=== PATIENT | male | born 1965 | race Caucasian/White ===

== ENCOUNTER 2020-03-19 16:40 | Inpatient (IN) | payer OTHER, SELFPAY ==
[2020-03-19] VITALS (7 sets, daily range): BP systolic 140–172; BP diastolic 68–94; PULSE 72–89; RESP 16–20; TEMP 36.2–37.4; O2SAT 93–98; BMI 40.3; BMI 39.2
--- NOTE | 2020-03-19 17:09 | ED.DCSUM_ITS ---
History of Present Illness Chief Complaint: Shortness of Breath Narrative: This patient is a 54-year-old male who presents with Covid symptoms. He initially began about 13 days ago with a headache. He then developed sinusitis- like symptoms with sinus pressure congestion and postnasal drainage. He has had an intermittent cough. He currently complains of mild shortness of breath. He did have some mild diarrhea at one point that says since resolved. He has had no fevers. He complains of mild chest discomfort. No nausea or vomiting. He has no known history of any underlying lung disease such as asthma or COPD. His did test positive for Covid. Today they checked his pulse ox at home and it was as low as 82 to 83% so he came in for further evaluation and treatment. His shortness of breath is worse with exertion. Past Medical History - Allergies and Home Meds Allergies/Adverse Reactions: Allergies latex Adverse Reaction (Verified 03/19/20 16:42) REDDNESS Primary Care Physician: [facility] [Primary Care Provider] - Past Medical History: - - Hypertension Surgical History: noncontributory Smoking Status: Never smoker - Family History Maternal Family History: Reports: Hypertension Paternal Family History: Reports: Hypertension, - - obesity Review of Systems All systems negative except as indicated General: Denies: Fever Eyes: Denies: Visual changes - bilaterally ENT: Reports: Rhinorrhea, - - And is pressure/congestion. Denies: Bilateral ear pain Cardiovascular: Reports: Chest pain Respiratory: Reports: Dyspnea, Cough, Sputum Gastrointestinal: Reports: Diarrhea. Denies: Nausea, Vomiting Musculoskeletal: Reports: Myalgias Skin: Denies: Rash Neurological: Reports: Headache Hematologic: Denies: Easy bruising Allergy: Denies: Uticaria Physical Exam Vital Signs/Narrative: Vital Signs Temp Pulse Resp BP Pulse Ox 03/19/20 16:40 97.5 F L 85 20 H 146/73 H 95 Inital Vital Signs reviewed: Yes General: Well nourished, Obese Head: Normocephalic Eyes: EOMI ENT: Moist mucous membranes Neck: Supple Cardiovascular: Regular rate, Regular rhythm Respiratory: - - Tachypnea, patient appears to be dyspneic with changes in position even just moving in the bed he does have bilateral rales most pronounced at the right lower lung tony I do not appreciate wheezing he does have good air exchange no retractions able to speak full sentences Abdomen: Soft Extremities: Nontender, No edema Skin: Normal color Neurological: Alert Psychological: Normal affect Diagnostic/Tx/Re-eval Impressions Chest X-Ray 03/19/20 17:20 IMPRESSION: Probably early right lung pneumonia. Electronically Signed: Tom Magallanes, at 17:53 EST Tel , Service support , Chest CTA 03/19/20 18:33 IMPRESSION: 1. No pulmonary embolism, mildly technically limited exam. 2. Recommend ultrasonography of the lower extremities to increase accuracy of assessment and risk stratification for patient at risk for venous thrombi embolic disease. 3. Bilateral mild to moderate viral pneumonia. Electronically Signed: Tom Mendietacris, at 19:34 EST Tel , Service support , 03/19/20 17:20 Chest 1 View (Portable) [RAD] Stat 03/19/20 18:33 CTA Chest W/WO Contrast [CT] Stat 03/19/20 17:20 Mucosa - Nose SARS-CoV-2 Antigen (Rapid) - Final SARS-CoV-2 (COVID 19) Laboratory Results 03/19/20 03/19/20 03/19/20 17:30 17:30 17:30 WBC 9.2 RBC 4.79 Hgb 14.9 Hct 42.4 MCV 88.5 MCH 31.1 MCHC 35.1 RDW Std Deviation 38.8 RDW Coeff of Filemon 11.9 Plt Count 149 L MPV 9.7 Immature Gran % (Auto) 0.700 Neut % (Auto) 86.3 H Lymph % (Auto) 7.6 L [place] % (Auto) 5.2 Eos % (Auto) 0.0 Baso % (Auto) 0.2 Absolute Neuts (auto) 8.0 H Absolute Lymphs (auto) 0.70 L Nucleated RBC % 0 D-Dimer Quant (PE/DVT) 1.97 H* Sodium 139 Potassium 3.8 Chloride 108 H Carbon Dioxide 26.0 Anion Gap 5 BUN 17 Creatinine 1.27 Estim Creat Clear Calc 68.04 Est GFR (MDRD) Af Amer 77 Est GFR (MDRD) Non-Af 63 BUN/Creatinine Ratio 13.4 Glucose 115 H Calcium 8.5 Total Bilirubin 0.90 AST 30 ALT 46 Alkaline Phosphatase 63 Troponin I < 0.015 Total Protein 7.9 Albumin 3.5 Globulin 4.4 H Albumin/Globulin Ratio 0.8 L - Medical Decision Making EKG shows normal sinus rhythm with nonspecific T wave abnormalities at a rate of 83. One-view portable chest x-ray was obtained. On my interpretation this is concerning for right-sided infiltrate. X-ray read by radiology who agrees. Laboratory studies were obtained as well. D-dimer returned elevated. Due to the known coagulopathy of COVID-19 there was concern for pulmonary embolism. CTA of the chest shows no evidence of pulmonary embolism. Covid antigen was positive. On reevaluation patient has desaturated to 89% was placed on oxygen via nasal cannula. Patient was given IV Decadron as well as IV Levaquin due to concern for potential superimposed bacterial pneumonia. Patient will be discussed with the hospitalist and admitted for further evaluation and management. ED Disposition - Plan for ED Patient: Disposition: Acute Care Hospital [facility] Diagnosis: Pneumonia due to COVID-19 virus, Hypoxia [facility] [[facility] -
--- NOTE | 2020-03-19 17:20 | RAD_ITS ---
STUDY: X-RAY CHEST REASON FOR EXAM: Male, 54 years old. DYSPNEA FOR PAST HOUR, THINKS HE''S HAD COVID FOR APPROX 13 DAYS, IS POSITIVE. TECHNIQUE: Frontal view of the chest COMPARISON: None. FINDINGS: Inspiratory volumes are low. Interstitial markings are coarsened. There is condensation of markings and increased opacity in the right lateral lung. There is no pneumothorax, pulmonary edema, cardiac megaly or pleural effusions. Osseous structures are intact. RAD/Chest 1 View (Portable) IMPRESSION: Probably early right lung pneumonia. Electronically Signed: Tom Magallanes, at 17:53 EST Tel , Service support ,
[2020-03-19] MEDS: 0.9% Normal Saline 1,000 ML 999 ML IV (17:36)
[2020-03-19 17:45] LABS: Basophil# 0.02 X10^3/uL; Basophil% 0.2 % (0-1); Hematocrit 42.4 % (40-54); Hemoglobin 14.9 g/dL (13.0-16.5); Lymphocyte % 7.6 % (19-41); Mean Corp Hgb Conc 35.1 g/dL (32-36); Mean Corpuscular Hgb 31.1 pg (27.0-32.0); Mean Corpuscular Volume 88.5 fL (80-94); Mean Platelet Vol. 9.7 fl (6.2-12.0); Monocyte# 0.48 X10^3/uL; Monocyte% 5.2 % (0-10); NRBC Flagged by Analyzer 0 % (0-5); Neutrophil # 7.95 X10^3/uL (2.7-7.7); Neutrophil % 86.3 % (47-70); Platelet Count 149 K/mm3 (150-450); RBC Distribution Width CV 11.9 % (11.6-14.6); RBC Distribution Width SD 38.8 fl (35.1-43.9); Red Blood Count 4.79 M/mm3 (4.6-6.2); White Blood Count 9.2 K/mm3 (4.4-11.0)
[2020-03-19 18:05] LABS: ALB/GLOB Ratio 0.8 RATIO (0.9-2.4); AST(SGOT) 30 U/L (15-37); Alanine Aminotransfer ALT/SGPT 46 U/L (16-61); Albumin, Serum 3.5 g/dL (3.2-5.0); Alkaline Phosphatase 63 U/L (45-117); Anion Gap 5 (5-15); BUN 17 mg/dL (7-18); BUN/Creat Ratio 13.4 RATIO (10-20); Calcium,Total 8.5 mg/dL (8.5-10.1); Chloride 108 mmol/L (98-107); Creatinine, Serum 1.27 mg/dL (0.70-1.30); EST Glomerular Filtration Rate 63 mL/min (>60); Est Glom Filt Rate - Afr Amer 77 mL/min (>60); Estimated Creatinine Clearance 68.04 ml/min; Globulin 4.4 g/dL (2.2-4.2); Glucose 115 mg/dL (74-106); Potassium 3.8 mmol/L (3.5-5.1); Protein, Total 7.9 g/dL (6.4-8.2); Sodium Level 139 mmol/L (136-145)
[2020-03-19 18:28] LABS: D-Dimer Quantitative (DVT/PE) 1.97 FEU/ug/m (0.27-0.49)
--- NOTE | 2020-03-19 18:33 | CT_ITS ---
STUDY: CTA CHEST REASON FOR EXAM: Male, 54 years old. Shortness of breath, elevated d-dimer viral pneumonia. RADIATION DOSAGE (If Supplied By Facility): CTDIvol = ( 22.00 ) mGy, DLP = ( 514.99 ) mGycm TECHNIQUE: The examination was performed with the intravenous administration of IV 100mL Isovue-370. Post-processing of the angiographic images was performed, with multiplanar reformation and 3D reconstruction. Individualized dose optimization techniques were used for this CT. COMPARISON: Prior chest x-ray from same day, February 08 2016 FINDINGS: Examination is mildly technically suboptimal due to patient''s large body habitus and suboptimal contrast enhancement of the pulmonary artery. Diagnostic information is available. Smaller segmental and subsegmental arteries are not evaluable. There is no acute or chronic pulmonary embolism. Aorta is of normal caliber. There are multiple irregular groundglass nodular opacities.. There is no pneumothorax, pulmonary edema or pleural effusions. Mediastinal contents are normal. Osseous structures are intact with age-related spinal change. Abdominal structures are unremarkable. CT/CTA Chest W/WO Contrast IMPRESSION: 1. No pulmonary embolism, mildly technically limited exam. 2. Recommend ultrasonography of the lower extremities to increase accuracy of assessment and risk stratification for patient at risk for venous thrombi embolic disease. 3. Bilateral mild to moderate viral pneumonia. Electronically Signed: Tom Magallanes, at 19:34 EST Tel , Service support ,
[2020-03-19] MEDS: dexAMETHasone 10 MG/ML Vial 6 MG IV (18:58)
[2020-03-19] MEDS: levoFLOXacin IV 750 MG/150 ML BAG 100 MG IV (18:58)
--- NOTE | 2020-03-19 19:54 | ED.RN ---
RECEIVED AUTHORIZATION FROM PT TO SPEAK WITH . HE SAID I COULD, HER NAME IS EDUARDO, SHE WAS UPDATED WITH POC AND ADMISSION.
--- NOTE | 2020-03-19 20:06 | PCM.HP.STD ---
Problem List (1) Pneumonia due to COVID-19 virus Status: Acute (2) Obesity (BMI 35.0-39.9 without comorbidity) Status: Chronic (3) Hypoxia Status: Acute (4) Hypertension Status: Chronic Qualifiers: Hypertension type: essential hypertension Qualified Code(s): I10 - Essential (primary) hypertension (5) Gastroesophageal reflux disease Status: Chronic History of Present Illness Date of Admission: 03/19/20 Chief Complaint: Headache, congestion, shortness of breath. The patient is a 54 year old M with past medical history as mentioned above presented to the emergency room because of multiple symptoms including headache, sinus and nasal congestion as well as shortness of breath. Initially started with a headache, generalized, throbbing headache, associated with sinus and chest congestion as well as mild cough and shortness of breath and without aggravating or relieving factors. Over the last couple of days, he has been having increasing shortness of breath, exertional, continued to have cough with sinus congestion as well as weakness and malaise. He denied fever or chills. He denied chest pain, hypertension, dizziness or lightheadedness. He mentioned that his diagnosed with COVID-19 recently and he has been quarantining himself at home. In the emergency department, he was afebrile, blood pressure was slight elevated, initial pulse ox was 95% on room air and then patient required oxygen of up to 2 L. Routine blood work was unremarkable. LFT was normal. EKG revealed normal sinus rhythm without evidence of acute ischemic changes. Troponin was negative. Chest x-ray revealed probable early right lower lobe infiltrate. D-dimer was elevated for which CTA chest done and showed no PE or dissection, revealed bilateral opacities consistent with pneumonia. COVID-19 antigen came back positive. Patient is being admitted for acute bilateral COVID-19 pneumonia with hypoxia. Past Medical History Past Medical History (Chronic Problems): Chronic Problems Sleep-disordered breathing (Chronic) Gastroesophageal reflux disease (Chronic) Hypertension (Chronic) Obesity (BMI 35.0-39.9 without comorbidity) (Chronic) Allergic rhinitis (Chronic) Allergies latex Adverse Reaction (Verified 03/19/20 16:42) REDDNESS Home Medications: Ambulatory Orders Medication Instructions Recorded Metoprolol(XL)Succ [Toprol Xl 50 mg PO DAILY 06/18/16 (Beta Shaggy)] Amlodipine [Norvasc] 5 mg PO DAILY 03/19/20 Surgical History: - - Hemorrhoidectomy. Psychiatric History: No pertinent psych hx Lives: Spouse/ Significant Other Smoking Status: Never smoker Alcohol: None Drugs: None - *Family History Maternal History Items: Hypertension Paternal History Items: Hypertension, - - obesity Review of Systems Constitutional: Reports: Anorexia, Malaise, Weakness, Fatigue. Denies: Chills, Fever Eyes: Denies: Blurred vision, Double vision, Drainage, Redness HEENT: Reports: Nasal Congestion, Sinus Congestion, Sinus Drainage. Denies: Difficulty Hearing, Ear Pain, Eye Pain, Sore Throat Cardiovascular: Denies: Chest Pain, Chest Pressure, Edema, Heaviness, Light Headedness, Palpitations, Syncope Respiratory: Reports: Cough, Shortness of Breath. Denies: Sputum production, Wheezing Gastrointestinal: Denies: Abdominal Pain, Constipation, Diarrhea, Nausea, Vomiting Genitourinary: Denies: Dysuria, Frequency, Hematuria Musculoskeletal: Denies: Arm Pain, Back Pain, Foot Pain Skin: Denies: Dryness, Rash Neurological: Denies: Balance problems, Blurred vision, Double vision, Change in Speech, Slurred speech, Confusion, Incoordination, Numbness Psychiatric: Denies: Anxiety, Depression Endocrine: Denies: Change in Body Habitus, Polydipsia, Polyuria VTE Information - Inpt Only VTE Present on Admission: No VTE Mechan Device Prophylaxis: None VTE Pharm Prophylaxis ordered?: Yes Patient Problems: Active and Suspected Problems Pneumonia due to COVID-19 virus (Acute) Hypoxia (Acute) - Physical Exam Vitals/I&O's: Vital Signs Temp Pulse Resp BP Pulse Ox 97.2 F L 77 20 H 140/68 H 98 03/19/20 18:00 03/19/20 19:53 03/19/20 19:53 03/19/20 19:53 03/19/20 19:53 Oxygen Delivery Method Room Air Weight: 273 lb 2.444 oz Body Mass Index (BMI) 40.3 Intake and Output for Last 24 Hours 03/17/20 03/18/20 03/19/20 23:59 23:59 23:59 Intake Total 1000 / 1000 Balance 1000 / 1000 General: Alert, Oriented x3, Cooperative, - - Mildly short of breath. HEENT: Atraumatic, PERRLA, EOMI, Normocephalic Oral: Moist Mucosa, No Gingival or Mucosal Lesions/ Ulcerations Neck: Supple, No JVD, Negative Carotid Bruits, Trachea Midline, Thyroid Normal Size and Texture Lungs: Clear to auscultation, No wheeze, No rales, Diminished Cardiovascular: Regular rate, Regular Rhythm, Normal S1, Normal S2, PMI Normal Abdomen: Bowel Sounds Present, Soft, Non Tender, Non-Distended, No Hepato-splenomegaly, Obese Extremities: No clubbing, No cyanosis, No edema Skin: No rashes, No breakdown Lymphatic: No Cervical, Supraclavicular, or Inguinal Adenopathy Neurological: Cranial nerves II-XII grossly intact, Motor Exam 5/5 strength throughout Psych/Mental Status: Normal Affect, Appropriate, Alert and oriented to time, place, person, mood and affect Microbiology Past 72 Hours 03/19/20 17:20 Mucosa - Nose SARS-CoV-2 Antigen (Rapid) - Final SARS-CoV-2 (COVID 19) Laboratory Results 03/19/20 17:30: D-Dimer Quant (PE/DVT) 1.97 H* 03/19/20 17:30: WBC 9.2, RBC 4.79, Hgb 14.9, Hct 42.4, MCV 88.5, MCH 31.1, MCHC 35.1, RDW Std Deviation 38.8, RDW Coeff of Filemon 11.9, Plt Count 149 L, MPV 9.7, Immature Gran % (Auto) 0.700, Neut % (Auto) 86.3 H, Lymph % (Auto) 7.6 L, [place] % (Auto) 5.2, Eos % (Auto) 0.0, Baso % (Auto) 0.2, Absolute Neuts (auto) 8.0 H, Absolute Lymphs (auto) 0.70 L, Nucleated RBC % 0 03/19/20 17:30: Sodium 139, Potassium 3.8, Chloride 108 H, Carbon Dioxide 26.0, Anion Gap 5, BUN 17, Creatinine 1.27, Estim Creat Clear Calc 68.04, Est GFR (MDRD) Af Amer 77, Est GFR (MDRD) Non-Af 63, BUN/Creatinine Ratio 13.4, Glucose 115 H, Calcium 8.5, Total Bilirubin 0.90, AST 30, ALT 46, Alkaline Phosphatase 63, Troponin I < 0.015, Total Protein 7.9, Albumin 3.5, Globulin 4.4 H, Albumin/Globulin Ratio 0.8 L Clinical Impression(s) from Imaging Studies Chest X-Ray 03/19/20 17:20 IMPRESSION: Probably early right lung pneumonia. Electronically Signed: Tom Magallanes, at 17:53 EST Tel , Service support , Chest CTA 03/19/20 18:33 IMPRESSION: 1. No pulmonary embolism, mildly technically limited exam. 2. Recommend ultrasonography of the lower extremities to increase accuracy of assessment and risk stratification for patient at risk for venous thrombi embolic disease. 3. Bilateral mild to moderate viral pneumonia. Electronically Signed: Tom Magallanes, at 19:34 EST Tel , Service support , Assessment/Plan All Active Problems Pneumonia due to COVID-19 virus (Acute) Hypoxia (Acute) This is a 54 years old male patient presented to the emergency room because of headache, sinus and chest congestion, cough and shortness of breath and he was found to have findings consistent with viral pneumonia bilaterally and tested positive for COVID-19. #1 acute bilateral COVID-19 pneumonia/hypoxia: Chest x-ray and CTA chest reviewed as above. COVID-19 antigen came back positive. Currently, patient is on 2 L of oxygen. EKG was unremarkable. Troponin was negative. Plan: [facility], isolation precautions, check serum BNP, CPK, lactic acid, pro time and INR, procalcitonin, start IV Decadron, IV remdesivir, Tylenol as needed, albuterol inhaler as needed, infectious disease consult, incentive spirometer, repeat CBC and CMP tomorrow morning. #2 elevated D-dimer: CTA chest showed no PE or dissection. Patient will be on Lovenox twice daily for DVT prophylaxis. #3 hypertension: Blood pressure was slightly elevated in the ED, continue Norvasc and metoprolol, start IV Thorazine as needed. #4 GERD: Patient currently is not on PPI. #5 DVT prophylaxis: Subcu Reza twice daily. This note was generated with [employer] software. It may contain incorrect words, spelling, and punctuation that were not noted in checking the note before signing. Inpatient E&M: 93537 Init Hosp L2
--- NOTE | 2020-03-19 21:15 | PCS.PANDOC ---
PANDEMIC DOCUMENTATION INITIATED: Date: 03/19/22 Time: 2111
[2020-03-19] MEDS: Enoxaparin 40 MG/0.4 ML Syringe SC (21:51)
[2020-03-19 23:09] LABS: International Normalized Ratio 1.2; Prothrombin Time (Protime)PT. 14.7 SECONDS (11.7-14.9)
[2020-03-19 23:11] LABS: Lactic Acid 1.4 mmol/L (0.4-1.9)
[2020-03-19 23:28] LABS: BNP,B-Type NATRIURETIC PEPTIDE 39.2 pg/mL (0-100)
[2020-03-19 23:30] LABS: CPK Total, Creatine Kinase 255 U/L (39-308)
[2020-03-19 23:37] LABS: Procalcitonin 0.29 ng/mL (0.00-0.09)
[2020-03-20 03:30] VITALS: BP 122/72; PULSE 59; RESP 18; TEMP 36.6; O2SAT 96
[2020-03-20 07:00] LABS: Absolute Lymphocyte Count 0.73 X10^3/uL (0.83-4.51); Absolute Neutrophil Count 8.9 X10^3/uL (2.0-7.7); Basophil# 0.02 X10^3/uL; Basophil% 0.2 % (0-1); Hematocrit 43.3 % (40-54); Hemoglobin 14.6 g/dL (13.0-16.5); Lymphocyte # 0.73 X10^3/ul (4.0); Lymphocyte % 7.3 % (19-41); Mean Corp Hgb Conc 33.7 g/dL (32-36); Mean Corpuscular Volume 89.1 fL (80-94); Mean Platelet Vol. 10.2 fl (6.2-12.0); Monocyte# 0.32 X10^3/uL; Monocyte% 3.2 % (0-10); NRBC Flagged by Analyzer 0 % (0-5); Neutrophil # 8.85 X10^3/uL (2.7-7.7); Neutrophil % 88.7 % (47-70); Platelet Count 151 K/mm3 (150-450); RBC Distribution Width CV 12.1 % (11.6-14.6); RBC Distribution Width SD 39.5 fl (35.1-43.9); Red Blood Count 4.86 M/mm3 (4.6-6.2)
[2020-03-20 07:33] LABS: ALB/GLOB Ratio 0.8 RATIO (0.9-2.4); AST(SGOT) 39 U/L (15-37); Alanine Aminotransfer ALT/SGPT 42 U/L (16-61); Albumin, Serum 3.2 g/dL (3.2-5.0); Alkaline Phosphatase 60 U/L (45-117); Anion Gap 9 (5-15); BUN 17 mg/dL (7-18); BUN/Creat Ratio 15.6 RATIO (10-20); Calcium,Total 8.4 mg/dL (8.5-10.1); Chloride 109 mmol/L (98-107); Creatinine, Serum 1.09 mg/dL (0.70-1.30); EST Glomerular Filtration Rate 75 mL/min (>60); Est Glom Filt Rate - Afr Amer 91 mL/min (>60); Estimated Creatinine Clearance 79.28 ml/min; Globulin 3.8 g/dL (2.2-4.2); Glucose 138 mg/dL (74-106); Potassium 4.8 mmol/L (3.5-5.1); Sodium Level 141 mmol/L (136-145)
[2020-03-20 09:30] VITALS: BP 133/87; PULSE 68; RESP 20; TEMP 36.6; O2SAT 98
[2020-03-20 10:22] VITALS: BP 133/87; PULSE 68
[2020-03-20] MEDS: amLODIPine 5 MG Tablet PO (10:22)
[2020-03-20] MEDS: Metoprolol(XL)Succ 50 MG Tablet PO (10:22)
[2020-03-20] MEDS: Enoxaparin 40 MG/0.4 ML Syringe SC ×2 (10:22→21:48)
[2020-03-20] MEDS: 0.9% Saline Lock 10 ML Syringe IV ×2 (12:06→22:46)
[2020-03-20] MEDS: dexAMETHasone 10 MG/ML Vial 6 MG IV (12:06)
--- NOTE | 2020-03-20 12:14 | NURSING ---
O2 SAT 96% ON 2L NC - DECREASED TO 1L NC - WILL MONITOR
--- NOTE | 2020-03-20 15:10 | CASEMGMT ---
RN FANNY SENIOR BENEFITS ANALYST FANNY placed call to pt's room for initial transition planning/care coordination assessment. YESSI ESCOBEDO introduced self and role at [facility].? Pt voices understanding and consents to assessment at this time.? Pt is A/O at this time and answers all questions appropriately.?? Care providers, pharmacy, and demographics verified/updated at this time. PCP: Dr Ball (pt thinks this is the spelling) @ [facility] Preferred Pharmacy: [facility] [place]: [facility], [facility] Prescription Benefit:? [facility] Living Will/HPOA:? Pt thinks he has completed these and states would be his POA, but he is not sure. LNOK: , [place] Living Arrangements: Lives w/his . Independent. Pt states he works a lot and is mostly home on weekends. manages home tasks. Transportation: Pt states drives self and states no transportation concerns at this time.? will take him home @ dc DME: Has: CPAP ?No home O2. [facility] get O2 through [facility] if he would need it, but if unable to get through [facility], denies preference of DME co. HHC/SNF: No history of either. Declines needs/no needs identified Pt wishes to return home and states has no concerns with going home at time of discharge. CM to follow for home oxygen needs and any further discharge planning/needs.? Pt voices no concerns/needs at this time.? Advised pt to ask for CM if any questions/concerns/needs arise.? Voices understanding. PLAN: ?Home. Follow for any O2 needs @ d/c. Simona ALBA RN, CM
[2020-03-20 15:28] VITALS: BP 127/71; PULSE 65; RESP 18; TEMP 36.6; O2SAT 95
--- NOTE | 2020-03-20 16:12 | CON.PCM_ITS ---
Problem List (1) Pneumonia due to COVID-19 virus Status: Acute Reason for Consult: covid Consulted by: Dr. Jones History of Present Illness: The patient is a 54 year old M got sick 11 days ago after went on a trip to [facility] with a bunch of college friends. She got sick, is now recovering, then pt and their son also got sick. He c/o aches, change in taste, cough, congestion, fatigue, dyspnea. Came to ED 03/19, admitted on dex, remdesivir. Feeling better today. Full ROS performed and neg except as noted above. - Medical History Past Medical History (Chronic Problems): Chronic Problems Sleep-disordered breathing (Chronic) Gastroesophageal reflux disease (Chronic) Hypertension (Chronic) Obesity (BMI 35.0-39.9 without comorbidity) (Chronic) Allergic rhinitis (Chronic) Allergies/Adverse Reactions: Allergies latex Adverse Reaction (Verified 03/19/20 16:42) REDDNESS Home Medications: Ambulatory Orders Medication Instructions Recorded Metoprolol(XL)Succ [Toprol Xl 50 mg PO DAILY 06/18/16 (Beta Shaggy)] Amlodipine [Norvasc] 5 mg PO DAILY 03/19/20 - Social History Tobacco Use: non-smoker Vital Signs Temp Pulse Resp BP Pulse Ox 97.8 F 65 18 127/71 H 95 03/20/20 15:28 03/20/20 15:28 03/20/20 15:28 03/20/20 15:28 03/20/20 15:28 Oxygen Flow Rate (L/min) 1 Oxygen Delivery Method Nasal Cannula Weight: 120.656 kg Body Mass Index (BMI) 39.2 Microbiology Past 72 Hours 03/19/20 17:20 SARS-CoV-2 Antigen (Rapid) - Final Mucosa - Nose SARS-CoV-2 (COVID 19) Laboratory Tests Past 24 Hrs 03/19/20 03/19/20 03/19/20 17:30 17:30 17:30 WBC 9.2 RBC 4.79 Hgb 14.9 Hct 42.4 MCV 88.5 MCH 31.1 MCHC 35.1 RDW Std Deviation 38.8 RDW Coeff of Filemon 11.9 Plt Count 149 L MPV 9.7 Immature Gran % (Auto) 0.700 Neut % (Auto) 86.3 H Lymph % (Auto) 7.6 L [place] % (Auto) 5.2 Eos % (Auto) 0.0 Baso % (Auto) 0.2 Absolute Neuts (auto) 8.0 H Absolute Lymphs (auto) 0.70 L Nucleated RBC % 0 PT INR D-Dimer Quant (PE/DVT) 1.97 H* Sodium 139 Potassium 3.8 Chloride 108 H Carbon Dioxide 26.0 Anion Gap 5 BUN 17 Creatinine 1.27 Estim Creat Clear Calc 68.04 Est GFR (MDRD) Af Amer 77 Est GFR (MDRD) Non-Af 63 BUN/Creatinine Ratio 13.4 Glucose 115 H Lactic Acid Calcium 8.5 Total Bilirubin 0.90 AST 30 ALT 46 Alkaline Phosphatase 63 Total Creatine Kinase Troponin I < 0.015 B-Natriuretic Peptide Total Protein 7.9 Albumin 3.5 Globulin 4.4 H Albumin/Globulin Ratio 0.8 L Procalcitonin 03/19/20 03/19/20 03/19/20 22:25 22:25 22:25 WBC RBC Hgb Hct MCV MCH MCHC RDW Std Deviation RDW Coeff of Filemon Plt Count MPV Immature Gran % (Auto) Neut % (Auto) Lymph % (Auto) [place] % (Auto) Eos % (Auto) Baso % (Auto) Absolute Neuts (auto) Absolute Lymphs (auto) Nucleated RBC % PT INR D-Dimer Quant (PE/DVT) Sodium Potassium Chloride Carbon Dioxide Anion Gap BUN Creatinine Estim Creat Clear Calc Est GFR (MDRD) Af Amer Est GFR (MDRD) Non-Af BUN/Creatinine Ratio Glucose Lactic Acid 1.4 Calcium Total Bilirubin AST ALT Alkaline Phosphatase Total Creatine Kinase 255 Troponin I B-Natriuretic Peptide 39.2 Total Protein Albumin Globulin Albumin/Globulin Ratio Procalcitonin 03/19/20 03/19/20 03/20/20 22:25 Unknown 06:21 WBC 10.0 RBC 4.86 Hgb 14.6 Hct 43.3 MCV 89.1 MCH 30.0 MCHC 33.7 RDW Std Deviation 39.5 RDW Coeff of Filemon 12.1 Plt Count 151 MPV 10.2 Immature Gran % (Auto) 0.600 Neut % (Auto) 88.7 H Lymph % (Auto) 7.3 L [place] % (Auto) 3.2 Eos % (Auto) 0.0 Baso % (Auto) 0.2 Absolute Neuts (auto) 8.9 H Absolute Lymphs (auto) 0.73 L Nucleated RBC % 0 PT 14.7 INR 1.2 D-Dimer Quant (PE/DVT) Sodium Potassium Chloride Carbon Dioxide Anion Gap BUN Creatinine Estim Creat Clear Calc Est GFR (MDRD) Af Amer Est GFR (MDRD) Non-Af BUN/Creatinine Ratio Glucose Lactic Acid Calcium Total Bilirubin AST ALT Alkaline Phosphatase Total Creatine Kinase Troponin I B-Natriuretic Peptide Total Protein Albumin Globulin Albumin/Globulin Ratio Procalcitonin 0.29 H 03/20/20 06:21 WBC RBC Hgb Hct MCV MCH MCHC RDW Std Deviation RDW Coeff of Filemon Plt Count MPV Immature Gran % (Auto) Neut % (Auto) Lymph % (Auto) [place] % (Auto) Eos % (Auto) Baso % (Auto) Absolute Neuts (auto) Absolute Lymphs (auto) Nucleated RBC % PT INR D-Dimer Quant (PE/DVT) Sodium 141 Potassium 4.8 Chloride 109 H Carbon Dioxide 23.0 Anion Gap 9 BUN 17 Creatinine 1.09 Estim Creat Clear Calc 79.28 Est GFR (MDRD) Af Amer 91 Est GFR (MDRD) Non-Af 75 BUN/Creatinine Ratio 15.6 Glucose 138 H Lactic Acid Calcium 8.4 L Total Bilirubin 0.60 AST 39 H ALT 42 Alkaline Phosphatase 60 Total Creatine Kinase Troponin I B-Natriuretic Peptide Total Protein 7.0 Albumin 3.2 Globulin 3.8 Albumin/Globulin Ratio 0.8 L Procalcitonin - Other Studies Radiology: [] reviewed Other Studies: [] Route of nutrition/ use of supplements: [] Nutritional Intake: [] IV Site: [] Mejía Catheter: [] - Physical Exam General: Alert, Oriented x3, Cooperative, No apparent distress HEENT: Atraumatic, PERRLA, EOMI Neck: Supple, No Nodes Lungs: Diminished Cardiovascular: Regular rate, Regular Rhythm Abdomen: Soft, Non Tender, Non-Distended Extremities: No edema Skin: No rashes IV Site: Peripheral, without redness Musculoskeletal: No Tenderness to Palpation of Joints or Extremities Neurological: Cranial nerves II-XII grossly intact - Assessment/Plan Antibiotics: [] Assessment/Plan: [] Active and Suspected Problems Pneumonia due to COVID-19 virus (Acute) Hypoxia (Acute) covid with hypoxia - sx started around 03/09. and son also sick, recovering. CT neg for PE. D-dimer of 2. On 2L here. Feeling better. On dex, remdesivir, lovenox 40mg bid. Will change dex to po. Plan on quarantine until 03/29/20. Complete 10 days of dex. Plan on 2 weeks of xarelto 10mg daily or eliquis 2.5mg bid after discharge. Will follow, thank you
[2020-03-20 16:44] VITALS: RESP 18; O2SAT 93
--- NOTE | 2020-03-20 20:18 | PN_ITS ---
Patient Problems: Active and Suspected Problems Pneumonia due to COVID-19 virus (Acute) Hypoxia (Acute) Subjective: Patient was seen and examined today, he remains on low-flow oxygen via nasal cannula, patient does not complain of any chills, fevers, or chest pain. - Physical Exam Vitals/I&O's: Vital Signs Temp Pulse Resp BP Pulse Ox 97.8 F 65 18 127/71 H 93 03/20/20 15:28 03/20/20 15:28 03/20/20 16:44 03/20/20 15:28 03/20/20 16:44 Oxygen Flow Rate (L/min) 1 Oxygen Delivery Method Room Air Weight: 120.656 kg Body Mass Index (BMI) 39.2 Intake and Output for Last 24 Hours 03/18/20 03/19/20 03/20/20 23:59 23:59 23:59 Intake Total 1150 / 1150 2069 Balance 1150 / 1150 2069 General: Alert, Oriented x3, Cooperative, No apparent distress, Well developed, Well nourished HEENT: Atraumatic, PERRLA, EOMI, Normocephalic Neck: Supple, No JVD, Negative Carotid Bruits, No Nuchal Rigidity, Trachea Midline, Thyroid Normal Size and Texture Lungs: Clear to auscultation, Normal air movement, No rhonchi, No wheeze, No rales Cardiovascular: Regular rate, Regular Rhythm, Normal S1, Normal S2, No murmurs, PMI Normal, No rub noted, No Gallop Abdomen: Bowel Sounds Present, Soft, Non Tender Extremities: No clubbing, No cyanosis, No edema, Capillary Refill Less than 3 Seconds Skin: No rashes, No breakdown Musculoskeletal: No Tenderness to Palpation of Joints or Extremities Neurological: Cranial nerves II-XII grossly intact, Neuro grossly intact, Sensory exam intact to light touch and pain Psych/Mental Status: Normal Affect, Appropriate, Alert and oriented to time, place, person, mood and affect Microbiology Past 72 Hours 03/19/20 17:20 Mucosa - Nose SARS-CoV-2 Antigen (Rapid) - Final SARS-CoV-2 (COVID 19) Laboratory Results 03/19/20 22:25: Total Creatine Kinase 255 03/19/20 22:25: B-Natriuretic Peptide 39.2 03/19/20 22:25: Lactic Acid 1.4 03/19/20 22:25: Procalcitonin 0.29 H 03/19/20 : PT 14.7, INR 1.2 03/20/20 06:21: WBC 10.0, RBC 4.86, Hgb 14.6, Hct 43.3, MCV 89.1, MCH 30.0, MCHC 33.7, RDW Std Deviation 39.5, RDW Coeff of Filemon 12.1, Plt Count 151, MPV 10.2, Immature Gran % (Auto) 0.600, Neut % (Auto) 88.7 H, Lymph % (Auto) 7.3 L, [place] % (Auto) 3.2, Eos % (Auto) 0.0, Baso % (Auto) 0.2, Absolute Neuts (auto) 8.9 H, Absolute Lymphs (auto) 0.73 L, Nucleated RBC % 0 03/20/20 06:21: Sodium 141, Potassium 4.8, Chloride 109 H, Carbon Dioxide 23.0, Anion Gap 9, BUN 17, Creatinine 1.09, Estim Creat Clear Calc 79.28, Est GFR (MDRD) Af Amer 91, Est GFR (MDRD) Non-Af 75, BUN/Creatinine Ratio 15.6, Glucose 138 H, Calcium 8.4 L, Total Bilirubin 0.60, AST 39 H, ALT 42, Alkaline Phosphatase 60, Total Protein 7.0, Albumin 3.2, Globulin 3.8, Albumin/Globulin Ratio 0.8 L Current Medications Acetaminophen (Acetaminophen 325 Mg Tablet) 650 mg PO Q6H PRN PRN PRN Reason: Pain Score 1-10/Temp > 100.7 F Albuterol Sulfate (Albuterol Ih 8.5 Gm (Proair) Inhaler (200 Puffs)) 2 puff INHALATION Q4H PRN PRN PRN Reason: Shortness of breath, wheezing Amlodipine Besylate (Amlodipine 5 Mg Tablet) 5 mg PO DAILY [facility] Last Admin: 03/20/20 10:22 Dose: 5 mg Documented by: Dexamethasone (Dexamethasone 4 Mg Tablet) 6 mg PO DAILY [facility] Stop: 03/28/20 10:01 Enoxaparin Sodium (Enoxaparin 40 Mg/0.4 Ml Syringe) 40 mg SC BID [facility] Last Admin: 03/20/20 10:22 Dose: 40 mg Documented by: Hydralazine HCl (Hydralazine 20 Mg/Ml Vial) 10 mg IV Q8H PRN PRN PRN Reason: for SBP>160 Remdesivir 100 mg/ Sodium (Chloride) 250 mls @ 125 mls/hr IV Q24H [facility] Stop: 03/23/20 23:59 Sodium Chloride () 250 mls @ 15 mls/hr IV .[id number] PRN PRN Reason: Saline Flush Metoprolol Succinate (Metoprolol(Xl)Succ 50 Mg Tablet) 50 mg PO DAILY [facility] Last Admin: 03/20/20 10:22 Dose: 50 mg Documented by: Ondansetron HCl (Ondansetron 4 Mg/2 Ml Vial) 4 mg IV Q8H PRN PRN PRN Reason: NAUSEA/VOMITING Senna/Docusate Sodium (Senna/Docusate Sodium 1 Tablet) 2 tablet PO BID PRN PRN PRN Reason: Constipation Sodium Chloride (0.9% Saline Lock 10 Ml Syringe) 10 - 40 ml IV UD PRN PRN Reason: SALINE FLUSH Last Admin: 03/20/20 12:06 Dose: 10 ml Documented by: Zolpidem Tartrate (Zolpidem Tartrate 5 Mg Tablet) 5 mg PO QHS PRN PRN PRN Reason: INSOMNIA Medical Necessity - Tobacco Use Smoking Status: Never smoker Assessment/Plan All Active Problems Pneumonia due to COVID-19 virus (Acute) Hypoxia (Acute) #1 COVID-19 pneumonia-patient will be seen by infectious diseases today, he remains on his present medications for now, patient is on remdesivir and dexamethasone #2 hypoxia secondary to #1-patient's pulse ox will be monitored #3 essential hypertension #4 GERD Inpatient E&M: 98495 Subs Hosp L2
[2020-03-20 21:47] VITALS: BP 126/79; PULSE 62; RESP 18; TEMP 36.9; O2SAT 94
[2020-03-21 03:44] VITALS: BP 123/69; PULSE 58; RESP 16; TEMP 36.7; O2SAT 96
[2020-03-21 06:25] LABS: Hematocrit 41.6 % (40-54); Hemoglobin 14.1 g/dL (13.0-16.5); Mean Corp Hgb Conc 33.9 g/dL (32-36); Mean Corpuscular Hgb 30.1 pg (27.0-32.0); Mean Corpuscular Volume 88.7 fL (80-94); Mean Platelet Vol. 10.6 fl (6.2-12.0); Platelet Count 188 K/mm3 (150-450); RBC Distribution Width CV 12.1 % (11.6-14.6); RBC Distribution Width SD 38.9 fl (35.1-43.9); Red Blood Count 4.69 M/mm3 (4.6-6.2); White Blood Count 13.6 K/mm3 (4.4-11.0)
[2020-03-21 06:59] LABS: ALB/GLOB Ratio 0.8 RATIO (0.9-2.4); AST(SGOT) 34 U/L (15-37); Alanine Aminotransfer ALT/SGPT 44 U/L (16-61); Alkaline Phosphatase 56 U/L (45-117); Anion Gap 7 (5-15); BUN 22 mg/dL (7-18); BUN/Creat Ratio 19.6 RATIO (10-20); Calcium,Total 8.3 mg/dL (8.5-10.1); Chloride 111 mmol/L (98-107); Creatinine, Serum 1.12 mg/dL (0.70-1.30); EST Glomerular Filtration Rate 73 mL/min (>60); Est Glom Filt Rate - Afr Amer 88 mL/min (>60); Estimated Creatinine Clearance 77.15 ml/min; Globulin 3.6 g/dL (2.2-4.2); Glucose 123 mg/dL (74-106); Potassium 4.4 mmol/L (3.5-5.1); Protein, Total 6.6 g/dL (6.4-8.2); Sodium Level 141 mmol/L (136-145)
[2020-03-21 08:05] VITALS: BP 123/80; PULSE 60; RESP 20; TEMP 36.7; O2SAT 94
[2020-03-21 08:10] VITALS: BP 123/80; PULSE 60
[2020-03-21] MEDS: Enoxaparin 40 MG/0.4 ML Syringe SC (08:10)
[2020-03-21] MEDS: Metoprolol(XL)Succ 50 MG Tablet PO (08:10)
[2020-03-21] MEDS: dexAMETHasone 4 MG Tablet 6 MG PO (08:10)
[2020-03-21] MEDS: amLODIPine 5 MG Tablet PO (08:11)
[2020-03-21 10:11] VITALS: O2SAT 94
--- NOTE | 2020-03-21 12:00 | PCM.DC ---
- Discharge Diagnoses Current Active Problems: Current Active and Chronic Problems Pneumonia due to COVID-19 virus (Acute) Hypoxia (Acute) Gastroesophageal reflux disease (Chronic) Hypertension (Chronic) Obesity (BMI 35.0-39.9 without comorbidity) (Chronic) You will use the following diet at home:: No restrictions Your food should be the consistency of: Regular Your liquids should be the consistency of: Regular/Thin Discharge Activity: Return to Normal Activity Return to work on:: 03/29/20 Weight Bearing Status: Full weight bearing Additional Instructions: Quarantine until 03/29/19 Start Eliquis tonite, dexamethasone tomorrow While on Eliquis-no use of aspirin or Ibuprofen or Alleve, use of Tylenol is ok If you see any abnormal bleeding (stool, urine, nosebleed) stop Eliquis Allergies/Adverse Reactions: Allergies latex Adverse Reaction (Verified 03/19/20 16:42) REDDNESS Medications to take at Discharge Metoprolol(XL)Succ [Toprol Xl (Beta Shaggy)] 50 mg PO DAILY 06/18/16 Amlodipine [Norvasc] 5 mg PO DAILY 03/19/20 Apixaban [Eliquis] 2.5 mg PO BID #28 tab 03/21/20 dexAMETHasone [Dexamethasone] 6 mg PO DAILY #21 tab 03/21/20 The following prescriptions were given: dexAMETHasone [Dexamethasone] 6 mg PO DAILY #21 tab Transmission Status: Pending to [id number] Apixaban [Eliquis] 2.5 mg PO BID #28 tab Transmission Status: Pending to [id number] Primary Care Physician: [facility] [Primary Care Provider] - Please follow up with your Primary Care Physician in: as scheduled Test Results: Test results from this visit will be discussed in further detail at your follow-up appointment, if applicable.
--- NOTE | 2020-03-21 12:11 | CASEMGMT ---
YESSI CM Note: Eliquis saving card information called to [facility]. Eliquis prescription will have no cost. Nona ALBA RN ACM
[2020-03-21 12:52] VITALS: BP 128/79; PULSE 64; RESP 18; TEMP 36.7; O2SAT 95
[2020-03-21 14:30] VITALS: BP 128/79; PULSE 64; RESP 18; TEMP 36.7; O2SAT 95
--- NOTE | 2020-03-23 18:19 | DS.PCM_ITS ---
Discharge Date and Diagnosis - Problem List Patient Problems: Active and Suspected Problems Pneumonia due to COVID-19 virus (Acute) Hypoxia (Acute) Date of Admission: 03/19/20 Date of Discharge: 03/21/20 - Primary Discharge Diagnosis Acute Problems: Active Problems Pneumonia due to COVID-19 virus (Acute) Hypoxia (Acute) Essential hypertension GERD - Secondary Discharge Diagnosis Chronic Problems: Chronic Problems Sleep-disordered breathing (Chronic) Gastroesophageal reflux disease (Chronic) Hypertension (Chronic) Obesity (BMI 35.0-39.9 without comorbidity) (Chronic) Allergic rhinitis (Chronic) Hospital Course and Treatment Operations: None Procedures: None Summary of Care Provided: The patient is a 54 year old M who was seen in the emergency room at [facility] with complaints of Covid symptoms. He stated initially began 13 days prior with a headache and he developed sinusitis-like symptoms with sinus pressure and postnasal drainage. Patient complained of mild shortness of breath. Patient states his tested positive for Covid, he stated that he checked his pulse ox at home and it was noted to be 82-83 so he came into the ER for further evaluation. Work-up included a chest x-ray which was read out as showing a right-sided infiltrate, D-dimer returned elevated, CT of the chest showed no evidence of pulmonary embolism, Covid antigen was positive. Patient pulse ox on room air was 89% he was placed on nasal cannula oxygen and given IV Levaquin due to concern for community-acquired bacterial pneumonia and given IV Decadron. Patient was admitted to [place] [address], he was placed on remdesivir and dexamethasone, antibiotics were discontinued, he was placed on Lovenox. Patient improved during his hospitalization. On 03/21/2020, patient was seen and examined: On examination he appeared in good health and spirits. Vital signs as documented. Skin warm and dry and without overt rashes. Neck without JVD, neck was supple, trachea midline, thyroid was normal. Lungs clear bilaterally, normal air movement was noted. Heart exam notable for regular rhythm, normal sounds and absence of murmurs, rubs or gallops. Abdomen unremarkable and without evidence of organomegaly, masses, or abdominal aortic enlargement. Bowel sounds are present, abdomen is not distended. Extremities nonedematous, no cyanosis was noted, no clubbing was noted. Neuro: Cranial nerves II through XII are grossly intact, no focal motor deficits were noted, sensation to light touch and pinprick intact, motor exam 5/5 throughout. Psych: Patient is alert and oriented x3, he does not appear anxious or depressed, he does not appear agitated. On 03/21/2020, patient was seen and examined and felt to be stable condition for discharge home Patient Problems: Active and Suspected Problems Pneumonia due to COVID-19 virus (Acute) Hypoxia (Acute) - Physical Exam Vitals/I&O's: Vital Signs Temp Pulse Resp BP Pulse Ox 98.0 F 64 18 128/79 H 95 03/21/20 14:30 03/21/20 14:30 03/21/20 14:30 03/21/20 14:30 03/21/20 14:30 Oxygen Flow Rate (L/min) 93 Oxygen Delivery Method Room Air Weight: 120.656 kg Body Mass Index (BMI) 39.2 Intake and Output for Last 24 Hours 03/21/20 03/22/20 03/23/20 23:59 23:59 23:59 Intake Total 1200 / 1200 Balance 1200 / 1200 Discharge Activity: Return to Normal Activity Return to work on:: 03/29/20 Weight Bearing Status: Full weight bearing Home Medications: Medications to take at Discharge Metoprolol(XL)Succ [Toprol Xl (Beta Shaggy)] 50 mg PO DAILY 06/18/16 Amlodipine [Norvasc] 5 mg PO DAILY 03/19/20 Apixaban [Eliquis] 2.5 mg PO BID #28 tab 03/21/20 dexAMETHasone [Dexamethasone] 6 mg PO DAILY #21 tab 03/21/20 Following Prescriptions Were Given to Patient: dexAMETHasone [Dexamethasone] 6 mg PO DAILY #21 tab Transmission Status: Received by [facility] #[id number] Apixaban [Eliquis] 2.5 mg PO BID #28 tab Transmission Status: Received by [id number] [Primary [facility]] - Please follow up with your Primary Care Physician in: as scheduled Disposition: Home Minutes spent on discharge:: 31 Patient Condition:: Stable Medical Necessity - Tobacco Use Smoking Status: Never smoker Meaningful Use Info Meaningful Use Diagnoses (Choose all that apply): None applicable Inpatient E&M: 62918 Disch Hosp
--- NOTE | 2020-03-25 14:33 | CASEMGMT ---
YESSI ESCOBEDO DC PHONE CALL DC DATE: 03/21/2020 DC DISPOSITION: Home DC DIAGNOSIS: SARS COVID 2 Attempted call to patient's phone. No answer and no voice messaging with name identifier. Nona ALBA RN ACM.
== END 2020-03-21 14:30 | disposition home or self-care (01) | DRG 177 ==
LOC: ED 19:49 → MS2 20:17
PROVIDERS: Internal Medicine Infectious Disease; Admitting Provider Hospitalist; Emergency Provider Emergency Medicine; Visit Provider Internal Medicine
DX: U07.1 COVID-19 (principal); J12.89 Other viral pneumonia; Z68.41 Body mass index [BMI] 40.0-44.9, adult; K21.9 Gastro-esophageal reflux disease without esophagitis; R09.02 Hypoxemia; R79.89 Other specified abnormal findings of blood chemistry; I10 Essential (primary) hypertension; E66.9 Obesity, unspecified; Z79.899 Other long term (current) drug therapy
CPT/HCPCS: 36415; 71045; 71275; 80053; 82550; 83605; 83880; 84145; 84484; 85025; 85027; 85379; 85610; 87426; 93005; 99251; 99285; J7030; J7050; A4216; G0463

== ENCOUNTER 2022-02-08 18:25 | Emergency (ER) | payer OTHER, SELFPAY ==
[2022-02-08 18:26] VITALS: BP 199/93; PULSE 84; RESP 18; TEMP 36.2; O2SAT 98; BMI 43.5
--- NOTE | 2022-02-08 18:36 | EX.ED.DYSGE1 ---
HPI History of Present Illness Chief Complaint: Cellulitis Detail of Chief Complaint: Redness and swelling to legs Informant: patient Narrative Narrative: Patient presents the emergency department with complaint of a rash that started initially 2 weeks ago on his legs. Patient thought maybe he got into some poison julio césar. Patient states that he has been itching at his legs quite a bit and he has a history of eczema. The right leg is now much better and improved but the left leg became more red over the last for 5 days. Patient also noted some swelling to his left leg and became concerned. He denies any fever or chills or sweats. PFSH PFSH Medical History no medical history Home Medications metoprolol succinate 25 mg tablet,extended release 24 hr 50 mg PO DAILY 06/18/16 [History Last Taken Unknown] amlodipine 5 mg tablet 5 mg PO DAILY 03/19/20 [History Last Taken Unknown] apixaban 2.5 mg tablet 2.5 mg PO BID #28 tabs 03/21/20 [Rx Last Taken Unknown] dexamethasone 2 mg tablet 6 mg PO DAILY #21 tabs 03/21/20 [Rx Last Taken Unknown] cephalexin 500 mg capsule 500 mg PO Q6 #40 CAPSULES 02/08/22 [Rx Last Taken Unknown] sulfamethoxazole 800 mg-trimethoprim 160 mg tablet 1 tab PO BID #20 TABLETS 02/08/22 [Rx Last Taken Unknown] Allergy/AdvReac Type Severity Reaction Status Date / Time latex AdvReac REDDNESS Verified 02/08/22 18:26 Social History Smoking Status: Never smoker ROS ROS ED Review of Systems ROS Unobtainable: other Constitutional Constitutional ED: Reports lethargy; Denies chills, fever(s), sweats or weight loss Eyes Eyes: Denies blurry vision, change in vision or diplopia ENT ENT ED: Denies rhinorrhea or sore throat Cardiovascular Cardiovascular: Denies chest pain, orthopnea or racing heartbeat Respiratory/Chest Respiratory/Chest: Denies cough, dyspnea, dyspnea on exertion, orthopnea or sputum Gastrointestinal Gastrointestinal: Denies abdominal pain, diarrhea, nausea or vomiting Genitourinary Genitourinary ED: Denies dysuria, hematuria or urinary frequency Musculoskeletal Musculoskeletal: Denies arthralgias, back pain, myalgias or neck pain Integumentary Reports rash and other Details: Redness and swelling to legs ; Denies abscess or Abrasions Neurologic Neurologic: Denies headache(s) or weakness Psychiatric Psychiatric: Denies anxiety, depression or suicidal thoughts Endocrine Endocrinology: Denies polydipsia, polyphagia or polyuria Hematologic/Lymphatic Hematologic/Lymphatic: Denies easy bleeding, easy bruising or lymphadenopathy Allergic/Immunologic Allergic/Immunologic ED: Denies mouth swelling, tongue swelling or urticaria EXAM Physical Exam Const Vital Signs: 02/08/22 18:26 02/08/22 19:33 Temperature 97.1 F L 97.8 F Temperature Source Temporal Temporal Pulse Rate 84 78 Respiratory Rate 18 16 Blood Pressure 199/93 H 175/78 H Blood Pressure Mean 128 110 Pulse Ox 98 99 Oxygen Delivery Method Room Air Room Air Positive well nourished and well developed General Appearance ED: well developed and NAD HEENT Reports TM's clear and moist mucous membranes normocephalic and atraumatic; Negative for trauma or tenderness Tympanic Membrane ED: Yes TM's clear Eyes PERRL and EOMs intact bilaterally General Eye ED: Negative for pale conjunctiva or scleral icterus Neck no lymphadenopathy, supple and no JVD General: Negative for tenderness Chest Wall inspection of chest normal and palpation of chest normal Chest: Negative for tenderness Resp normal respiratory effort and clear to auscultation bilaterally Effort and Inspection: Negative for respiratory distress or pain with movement Auscultation: Negative for rhonchi, wheezes or diminished lung sounds Cardio regular rate, regular rhythm, S1 normal heart sound, S2 normal heart sound and no murmurs Peripheral Pulses: pulses 2+ throughout GI normal to inspection, nondistended, normoactive bowel sounds, soft to palpation, non-tender, non-distended and no masses Back/Spine no CVA tenderness and no thoracic nor lumbar tenderness Extremity Extremity Narrative: Right lower extremity has some cracked skin that is dry consistent with eczematous type changes. There is no evidence of cellulitis to right lower extremity and normal pulses. Patient of the left leg reveals areas of dry cracked skin with significant erythema and cellulitic changes. He is neurovascularly intact. Normal pulses. General Extremety ED: Negative for edema General Extremity: Negative for edema Neuro oriented x3, CN's II-XII intact bilaterally, no sensory deficits noted and gait normal Sensorium / Orientation: awake, alert, oriented to person, oriented to place and oriented to time Motor Exam: strength 5/5 throughout and strength abnormal Psych mental status grossly normal Skin no rashes or lesions noted and no wounds MDM MDM MDM Narrative Medical decision making narrative: IV line established on arrival. Patient has CBC with differential that showed a normal white count. Chemistries were unremarkable. Patient was given Unasyn 3 g IV. At this point patient I feel can be safely discharged to home with antibiotics for suspicion of cellulitis of left lower extremity. Patient advised to follow-up with primary care physician within next 3 to 5 days. He is to return if fever, chills, sweats, increased redness or swelling, or condition should worsen anyway. Lab Data Attestation: I reviewed the patient's lab results. Labs: Laboratory Results - last 24 hr 02/08/22 02/08/22 18:55 18:55 WBC 8.2 RBC 5.15 Hgb 15.7 Hct 45.8 MCV 88.9 MCH 30.5 MCHC 34.3 RDW Std Deviation 41.1 RDW Coeff of Filemon 12.6 Plt Count 228 MPV 9.9 Immature Gran % (Auto) 0.900 Neut % (Auto) 63.0 Lymph % (Auto) 20.4 [place] % (Auto) 11.9 H Eos % (Auto) 2.8 Baso % (Auto) 1.0 Absolute Neuts (auto) 5.2 Absolute Lymphs (auto) 1.67 Nucleated RBC % 0 Sodium 139 Potassium 4.0 Chloride 106 Carbon Dioxide 25.0 Anion Gap 8 BUN 15 Creatinine 1.39 H Estim Creat Clear Calc 60.75 Est GFR (MDRD) Af Amer 68 Est GFR (MDRD) Non-Af 57 L BUN/Creatinine Ratio 10.8 Glucose 128 H Calcium 8.8 Discharge Plan Triage Chief Complaint: Cellulitis ED Provider: Anthony Crowley Dx/Rx/DC Orders Clinical Impression: Cellulitis of left leg Instructions: ED Cellulitis Prescriptions: New sulfamethoxazole-trimethoprim [sulfamethoxazole-trimethoprim] 800-160 mg tablet 1 tab PO BID Qty: 20 0RF cephalexin [cephalexin] 500 mg capsule 500 mg PO Q6 Qty: 40 0RF No Action metoprolol succinate 25 MG tablet 50 mg PO DAILY Label Comments: heart rate/blood pressure amlodipine 5 MG tablet 5 mg PO DAILY dexamethasone 2 MG tablet 6 mg PO DAILY Qty: 21 0RF apixaban 2.5 MG tablet 2.5 mg PO BID Qty: 28 0RF [facility] [[facility] Provider] - 3-5 Days Disposition Disposition: Home, Self Care
[2022-02-08 19:08] LABS: Absolute Lymphocyte Count 1.67 X10^3/uL (0.83-4.51); Absolute Neutrophil Count 5.2 X10^3/uL (2.0-7.7); Basophil# 0.08 X10^3/uL; Eosinophil# 0.23 X10^3/uL; Eosinophils% 2.8 % (0-5); Hematocrit 45.8 % (40-54); Hemoglobin 15.7 g/dL (13.0-16.5); Lymphocyte # 1.67 X10^3/ul (0.83-4.51); Lymphocyte % 20.4 % (19-41); Mean Corp Hgb Conc 34.3 g/dL (32-36); Mean Corpuscular Hgb 30.5 pg (27.0-32.0); Mean Corpuscular Volume 88.9 fL (80-94); Mean Platelet Vol. 9.9 fl (6.2-12.0); Monocyte# 0.97 X10^3/uL; Monocyte% 11.9 % (0-10); NRBC Flagged by Analyzer 0 % (0-5); Neutrophil # 5.15 X10^3/uL (2.7-7.7); Platelet Count 228 K/mm3 (150-450); RBC Distribution Width CV 12.6 % (11.6-14.6); RBC Distribution Width SD 41.1 fl (35.1-43.9); Red Blood Count 5.15 M/mm3 (4.6-6.2); White Blood Count 8.2 K/mm3 (4.4-11.0)
[2022-02-08 19:18] LABS: Anion Gap 8 (5-15); BUN 15 mg/dL (7-18); BUN/Creat Ratio 10.8 RATIO (10-20); Calcium,Total 8.8 mg/dL (8.5-10.1); Chloride 106 mmol/L (98-107); Creatinine, Serum 1.39 mg/dL (0.70-1.30); EST Glomerular Filtration Rate 57 mL/min (>60); Est Glom Filt Rate - Afr Amer 68 mL/min (>60); Estimated Creatinine Clearance 60.75 ml/min; Glucose 128 mg/dL (74-106); Sodium Level 139 mmol/L (136-145)
[2022-02-08 19:33] VITALS: BP 175/78; PULSE 78; RESP 16; TEMP 36.6; O2SAT 99
[2022-02-08 20:23] VITALS: BP 175/89; PULSE 70; RESP 21; O2SAT 95
== END 2022-02-08 20:39 | disposition home or self-care (01) ==
PROVIDERS: Emergency Provider Emergency Medicine; Visit Provider Emergency Medicine
DX: L03.116 Cellulitis of left lower limb (principal); M79.89 Other specified soft tissue disorders; R53.83 Other fatigue
CPT/HCPCS: 80048; 85025; 96365; 99283; J0295

== ENCOUNTER 2022-03-14 11:27 | Emergency (ER) | payer OTHER, SELFPAY ==
[2022-03-14 11:28] VITALS: BP 191/90; PULSE 73; RESP 18; TEMP 36.4; O2SAT 98; BMI 43.5
--- NOTE | 2022-03-14 12:14 | EDS_ITS ---
HPI History of Present Illness Chief Complaint: Cellulitis Narrative Narrative: 56-year-old male presenting with cellulitis on the left leg. He states he had this just over a month ago. He was given Keflex and this completely resolved. He follow-up with his PCP. He denies systemic signs or symptoms. He states that the redness is present on the left leg and he used ice on this to try to soothe it. He states that he took a hot bath and then started rubbing it and noted that some of the skin came off on the left medial thigh. He notes increased warmth and pain in this area. PFSH PFS Home Medications metoprolol succinate 25 mg tablet,extended release 24 hr 50 mg PO DAILY 06/18/16 [History Last Taken Unknown] amlodipine 5 mg tablet 5 mg PO DAILY 03/19/20 [History Last Taken Unknown] apixaban 2.5 mg tablet 2.5 mg PO BID #28 tabs 03/21/20 [Rx Last Taken Unknown] dexamethasone 2 mg tablet 6 mg PO DAILY #21 tabs 03/21/20 [Rx Last Taken Unknown] cephalexin 500 mg capsule 500 mg PO Q6 #40 CAPSULES 02/08/22 [Rx Last Taken Unknown] sulfamethoxazole 800 mg-trimethoprim 160 mg tablet 1 tab PO BID #20 TABLETS 02/08/22 [Rx Last Taken Unknown] cephalexin 500 mg capsule 500 mg PO Q6 #40 caps 03/14/22 [Rx Last Taken Unknown] Allergy/AdvReac Type Severity Reaction Status Date / Time latex AdvReac REDDNESS Verified 03/14/22 11:30 Social History Smoking Status: Never smoker [facility] ED Constitutional Constitutional ED: Denies chills or fever(s) Eyes Eyes: Denies change in vision or diplopia ENT ENT ED: Denies rhinorrhea or sore throat Cardiovascular Cardiovascular: Denies chest pain or palpitations Respiratory/Chest Respiratory/Chest: Denies cough or dyspnea Gastrointestinal Gastrointestinal: Denies abdominal pain or constipation Genitourinary Genitourinary ED: Denies dysuria or hematuria Musculoskeletal Musculoskeletal: Denies myalgias Integumentary Reports rash Neurologic Neurologic: Denies headache(s) or paresthesias EXAM Physical Exam Const Vital Signs: 03/14/22 11:28 Temperature 97.6 F L Temperature Source Temporal Pulse Rate 73 Respiratory Rate 18 Blood Pressure 191/90 H Blood Pressure Mean 123 Pulse Ox 98 Oxygen Delivery Method Room Air Positive well nourished General Appearance ED: NAD HEENT Reports moist mucous membranes Eyes PERRL and EOMs intact bilaterally Resp normal respiratory effort Cardio regular rate and regular rhythm Neuro oriented x3 and CN's II-XII intact bilaterally Sensorium / Orientation: alert Motor Exam: strength 5/5 throughout Psych mental status grossly normal Skin Skin Narrative: Left posterior and medial calf are erythematous and warm. There is a 3 cm circular area where the superficial layer of the skin has sloughed off. There is a clear serous discharge seeping from the wound. There are chronic stasis changes of the bilateral lower extremities. MDM MDM MDM Narrative Medical decision making narrative: Patient presenting with left lower extremity cellulitis. He has had this in the past. He states it resolved with Keflex. No history of MRSA. No systemic signs or symptoms. Patient will be started on Keflex again. He is urged to follow-up with his primary care physician at the [facility]. Return precautions are discussed. Impression: 1. Left lower extremity cellular Lab Data Attestation: I reviewed the patient's lab results. Discharge Plan Triage Chief Complaint: Cellulitis ED Provider: Sterling Garcia Dx/Rx/DC Orders Instructions: Cellulitis Dc Prescriptions: New cephalexin 500 mg capsule 500 mg PO Q6 Qty: 40 0RF No Action metoprolol succinate 25 MG tablet 50 mg PO DAILY Label Comments: heart rate/blood pressure amlodipine 5 MG tablet 5 mg PO DAILY dexamethasone 2 MG tablet 6 mg PO DAILY Qty: 21 0RF apixaban 2.5 MG tablet 2.5 mg PO BID Qty: 28 0RF sulfamethoxazole-trimethoprim [sulfamethoxazole-trimethoprim] 800-160 mg tablet 1 tab PO BID Qty: 20 0RF cephalexin [cephalexin] 500 mg capsule 500 mg PO Q6 Qty: 40 0RF [facility] Provider[facility] [[facility] - Disposition Disposition: Home, Self Care
--- NOTE | 2022-03-14 12:24 | ED.RN ---
[facility] SET ON HOLD FOR 30 MINUTES, TWICE PERSON THAT [facility] SAID THEY MAY NOT BE IN
[2022-03-14 12:48] VITALS: BP 173/110; PULSE 75; RESP 16; O2SAT 96
[2022-03-14] MEDS: Cephalexin 250 MG Capsule 500 MG PO (12:49)
== END 2022-03-14 12:52 | disposition home or self-care (01) ==
PROVIDERS: Emergency Provider Student in an Organized Health Care Education/Training Program; Visit Provider Student in an Organized Health Care Education/Training Program
DX: L03.116 Cellulitis of left lower limb (principal)
CPT/HCPCS: 99285

== ENCOUNTER 2022-06-23 05:38 | Emergency (ER) | payer OTHER, SELFPAY ==
[2022-06-23 05:38] VITALS: BP 156/100; PULSE 71; RESP 18; TEMP 36.4; O2SAT 99; BMI 45.0
--- NOTE | 2022-06-23 06:29 | EX.ED.DYSGE1 ---
HPI History of Present Illness Chief Complaint: Rash Narrative Narrative: Patient is a 56-year-old male with history of GERD and hypertension. He states he awakes early from work and did so this morning and noticed a rash on his arms and abdomen. He states it is pruritic in nature. He states he has been no new exposures other than he ate a pizza last night for dinner with lots of garlic. He states no one else at home has the rash. He denies any trouble breathing or swallowing. He states that however the rash seems to be progressing since he awoke and he has concerned that it will reach his throat or lungs and secondary to this comes in for evaluation [facility] Medical History (Updated 06/27/22 @ 02:[address] Mando Montoya, DO) Hypertension Pre-diabetes Home Medications metoprolol succinate 25 mg tablet,extended release 24 hr 50 mg PO DAILY 06/18/16 [History Last Taken Unknown] amlodipine 5 mg tablet 5 mg PO DAILY 03/19/20 [History Last Taken Unknown] apixaban 2.5 mg tablet 2.5 mg PO BID #28 tabs 03/21/20 [Rx Last Taken Unknown] dexamethasone 2 mg tablet 6 mg PO DAILY #21 tabs 03/21/20 [Rx Last Taken Unknown] cephalexin 500 mg capsule 500 mg PO Q6 #40 CAPSULES 02/08/22 [Rx Last Taken Unknown] sulfamethoxazole 800 mg-trimethoprim 160 mg tablet 1 tab PO BID #20 TABLETS 02/08/22 [Rx Last Taken Unknown] cephalexin 500 mg capsule 500 mg PO Q6 #40 caps 03/14/22 [Rx Last Taken Unknown] prednisone 10 mg tablet 10 mg PO DAILY #30 TABLETS 06/23/22 [Rx Last Taken Unknown] Allergy/AdvReac Type Severity Reaction Status Date / Time latex AdvReac REDDNESS Verified 06/23/22 05:44 Social History Smoking Status: Never smoker [facility] ED Constitutional Constitutional ED: Denies chills or fever(s) ENT ENT ED: Denies sore throat Cardiovascular Cardiovascular: Denies chest pain Respiratory/Chest Respiratory/Chest: Denies cough or dyspnea Gastrointestinal Gastrointestinal: Denies abdominal pain, diarrhea, nausea or vomiting Genitourinary Genitourinary ED: Denies dysuria Musculoskeletal Musculoskeletal: Denies myalgias Integumentary Reports rash Neurologic Neurologic: Denies headache(s) Hematologic/Lymphatic Hematologic/Lymphatic: Denies easy bleeding or easy bruising EXAM Physical Exam Const Vital Signs: 06/23/22 05:38 Temperature 97.5 F L Temperature Source Temporal Pulse Rate 71 Respiratory Rate 18 Blood Pressure 156/100 H Blood Pressure Mean 118 Pulse Ox 99 Oxygen Delivery Method Room Air Positive well nourished, well developed and obese General Appearance ED: well developed Nutritional Appearance: obese HEENT Reports moist mucous membranes HEENT Narrative: No tongue or lip swelling no oral lesions no airway edema or compromise Eyes PERRL and EOMs intact bilaterally Neck supple Resp normal respiratory effort and clear to auscultation bilaterally Cardio regular rate and regular rhythm Extremity normal to inspection Neuro oriented x3 and CN's II-XII intact bilaterally Sensorium / Orientation: alert Psych mental status grossly normal Skin Skin Narrative: Patient is erythematous blanchable urticarial lesions across bilateral upper arms his chest and lower abdomen and this extends down into the upper thigh/inguinal region. there is no vesicular or pustule changes noted. No involvement of the palms or soles MDM MDM MDM Narrative Medical decision making narrative: Patient presented to the ER hypertensive but has a past medical history of this and otherwise with stable vitals. He has no signs of respiratory distress no airway edema or compromise and no oral lesions. Therefore at this time I do not feel that the rash is related to Hurst-Talha syndrome or erythema multiforme or tqph-jhbj-wbh-mouth disease. As it is pruritic and moving across his arms chest abdomen and thighs I feel this is most likely allergic in nature. Secondary to this he was started on medication to prevent the inflammatory process. However as there is no signs of infection and no signs of respiratory distress there is no need for further work-up and he is otherwise safe for discharge with symptomatic care History & Record Review Discussion w/independent historian: Patient and Family Discharge Plan Triage Chief Complaint: Rash ED Provider: Mando Montoya Dx/Rx/DC Orders Clinical Impression: Allergic reaction, Hypertension, Obesity (BMI 35.0-39.9 without comorbidity) Instructions: ED General Allergic Reactions Prescriptions: New prednisone 10 mg tablet 10 mg PO DAILY Qty: 30 0RF Rx Instructions: 4 po qd x 3 days, 3 po qd x 3 days, 2 po qd x 3 days, 1 po qd x 3 days No Action metoprolol succinate 25 MG tablet 50 mg PO DAILY Label Comments: heart rate/blood pressure amlodipine 5 MG tablet 5 mg PO DAILY dexamethasone 2 MG tablet 6 mg PO DAILY Qty: 21 0RF apixaban 2.5 MG tablet 2.5 mg PO BID Qty: 28 0RF sulfamethoxazole-trimethoprim [sulfamethoxazole-trimethoprim] 800-160 mg tablet 1 tab PO BID Qty: 20 0RF cephalexin [cephalexin] 500 mg capsule 500 mg PO Q6 Qty: 40 0RF cephalexin 500 mg capsule 500 mg PO Q6 Qty: 40 0RF [facility] [Primary Care Provider] - Activity Restrictions/Additional Instructions: Take the steroid as directed to help control any further rash/allergic reaction. Based on the timeframe of your symptoms chance for respiratory distress is extremely low but if you have any tongue or lip swelling or difficulty breathing please return to the hospital for repeat evaluation. Disposition Disposition: Home, Self Care Discharge Date/Time: 06/23/22 06:46
[2022-06-23] MEDS: Triamcinolone Acetonide 40 MG/ML Vial IM (06:41)
== END 2022-06-23 06:46 | disposition home or self-care (01) ==
PROVIDERS: Emergency Provider Emergency Medicine; Visit Provider Emergency Medicine
DX: I10 Essential (primary) hypertension (principal); T78.40XA Allergy, unspecified, initial encounter; E66.9 Obesity, unspecified; Z79.899 Other long term (current) drug therapy; Z68.35 Body mass index [BMI] 35.0-35.9, adult
CPT/HCPCS: 96372; 99282

== ENCOUNTER 2024-12-18 16:46 | Emergency (ER) | payer OTHER, SELFPAY ==
[2024-12-18 16:47] VITALS: BP 179/93; PULSE 63; RESP 18; TEMP 36.9; O2SAT 97
--- NOTE | 2024-12-18 20:15 | RAD_ITS ---
PROCEDURE: FEMUR MIN 2 VIEWS 12/18/2024 REASON FOR EXAM: PAIN, FALL TECHNIQUE: Procedure Code: RADFEM Modality: DX Procedure: FEMUR MIN 2 VIEWS Laterality: COMPARISON: None RAD/Femur Min 2 Views IMPRESSION: No acute fracture or dislocations. Mild left hip degenerative changes. Moderate diffuse soft tissue edema. No radiographic foreign body. Reading Location: [id number]
[2024-12-18] MEDS: Ketorolac 30 MG/ML Syringe IM (20:27)
[2024-12-18 21:26] VITALS: BP 167/99; PULSE 55; RESP 14; TEMP 2.6; TEMP 35.9; TEMP 36.7; O2SAT 95
--- NOTE | 2024-12-18 23:33 | ED.VIS.FALL ---
HPI HPI - Fall History of Present Illness Chief Complaint: Fall Narrative Narrative: Patient is a 59-year-old male presenting emergency department for leg pain after a fall today. Patient reports that he fell down 3 steps outside on the deck. States that he missed a step and it caused him to land on his left foot. States that he did not fall down or hit his head. Denies any neck or back pain. Denies any other injuries other than left thigh pain. States he heard a pop in his leg. Reports this happened around 2 PM and he has been trying to rub the knot out in his thigh that he felt. Did not take anything for pain prior to arrival. [facility] Medical History Hypertension Home Medications ?Medication ?Instructions ?Recorded ?Last Taken ?Type metoprolol succinate 25 mg 50 mg PO DAILY 06/18/16 Unknown History tablet,extended release 24 hr amlodipine 5 mg tablet 5 mg PO DAILY 03/19/20 Unknown History apixaban 2.5 mg tablet 2.5 mg PO BID #28 tabs 03/21/20 Unknown Rx dexamethasone 2 mg tablet 6 mg (3 x 2 mg) PO DAILY #21 tabs 03/21/20 Unknown Rx cephalexin 500 mg capsule 500 mg PO Q6 #40 CAPSULES 02/08/22 Unknown Rx sulfamethoxazole 800 1 tab PO BID #20 TABLETS 02/08/22 Unknown Rx mg-trimethoprim 160 mg tablet cephalexin 500 mg capsule 500 mg PO Q6 #40 caps 03/14/22 Unknown Rx prednisone 10 mg tablet 10 mg PO DAILY #30 TABLETS 06/23/22 Unknown Rx Allergy/AdvReac Type Severity Reaction Status Date / Time latex AdvReac REDDNESS Verified 12/18/24 16:47 Surgical History H/O hemorrhoidectomy Social History Smoking Status: Never smoker ROS ROS ED ROS Narrative See HPI EXAM Physical Exam Narrative Exam Narrative: Vital signs: Reviewed General: Alert and oriented x 3. No acute distress HEENT: Head is normocephalic and atraumatic, sinuses nontender, pupils equal round and reactive. Nares are patent. Oropharynx and throat exams normal. Neck: Supple without lymphadenopathy nontender Cardiovascular: Regular rate and rhythm, no murmurs. No rubs or gallops. Normal S1 and S2 Respiratory: Clear to auscultation bilaterally. No wheezes, rales, rhonchi Abdominal: Soft and nontender. Normal bowel sounds. No guarding or rebound. Nonsurgical abdomen Extremities: No tenderness to palpation of the left hip, anterior left thigh, knee, tib-fib, ankle or foot. There is some mild tenderness to palpation of the left lateral thigh. There is no erythema or bruising noted. There is no significant edema noted. Compartments are soft palpation. Normal flexion and extension at left knee and hip. Skin: No rash or redness. Neurological: Cranial nerves II through XII are grossly intact. Normal strength and sensation. Normal cerebellar function The rest of the physical exam is unremarkable Const Vital Signs: 12/18/24 16:47 12/18/24 20:05 12/18/24 21:26 Temperature 98.4 F 96.7 F L Temperature Source Oral Oral Pulse Rate 63 55 L Respiratory Rate 18 14 Respiratory Effort Normal Respiratory Depth Normal Respiratory Pattern Normal Blood Pressure 179/93 H 167/99 H Blood Pressure Mean 121 121 Pulse Ox 97 95 Oxygen Delivery Method Room Air Room Air Room Air 12/18/24 21:26 Temperature 36.7 F L Temperature Source Pulse Rate 55 L Respiratory Rate 14 Respiratory Effort Respiratory Depth Respiratory Pattern Blood Pressure 167/99 H Blood Pressure Mean 121 Pulse Ox 95 Oxygen Delivery Method MDM MDM MDM Narrative Medical decision making narrative: Patient is a 59-year-old male presenting to the emergency department for left thigh pain after fall today. Patient was seen and examined. Vitals are stable. Patient resting bed comfortably no acute distress. Differential includes but is not limited to: Fracture, muscle strain, less like quad tendon rupture able to flex and extend at hip and knee without difficulty. Less likely hematoma, soft to palpation, no bruising or significant swelling X-ray of the femur ordered and reviewed by myself. No fractures dislocations noted. Radiology read negative as well. Patient given IM Toradol for pain control. Offered muscle relaxer but declined. Patient updated on the negative x-ray findings. Offered crutches to help with ambulation. Instructed to take Motrin and Tylenol at home for pain control. Again offered muscle relaxer prescription for home but patient declined. Patient discharged from the Emergency Department. I do not feel that the patient's evaluation reveals any acute reason for admission at this time. I instructed them to either follow-up with their primary care physician or promptly return to the Emergency Department for reevaluation should symptoms worsen or new symptoms develop. I explained what symptoms would indicate the need to return to the emergency department. Shared decision making was used. The patient voiced understanding of the treatment plan and is agreeable with it. Clinical impression Left thigh strain History & Record Review Discussion w/independent historian: Patient and Family Radiography X-Ray: Read by ED Physician, Normal and No Fracture Diagnostic Testing: Clinical Impression(s) from Imaging Studies Femur X-Ray 12/18/24 20:15 IMPRESSION: No acute fracture or dislocations. Mild left hip degenerative changes. Moderate diffuse soft tissue edema. No radiographic foreign body. Reading Location: [facility] Discharge Plan Triage Chief Complaint: Fall ED Provider: Yesy Santacruz Dx/Rx/DC Orders Clinical Impression: Muscle strain of left thigh Instructions: ED Muscle Strain, Extremity, ED RICE Prescriptions: No Action metoprolol succinate 25 MG tablet 50 mg PO DAILY Patient Comments: heart rate/blood pressure amlodipine 5 MG tablet 5 mg PO DAILY dexamethasone 2 MG tablet 6 mg PO DAILY Qty: 21 0RF apixaban 2.5 MG tablet 2.5 mg PO BID Qty: 28 0RF sulfamethoxazole-trimethoprim [sulfamethoxazole-trimethoprim] 800-160 mg tablet 1 tab PO BID Qty: 20 0RF cephalexin [cephalexin] 500 mg capsule 500 mg PO Q6 Qty: 40 0RF cephalexin 500 mg capsule 500 mg PO Q6 Qty: 40 0RF prednisone 10 mg tablet 10 mg PO DAILY Qty: 30 0RF Rx Instructions: 4 po qd x 3 days, 3 po qd x 3 days, 2 po qd x 3 days, 1 po qd x 3 days [facility] [Primary Care Provider, None] - 3-5 Days if not improving Activity Restrictions/Additional Instructions: Please refer to the RICE information for pain and swelling control. Use the crutches as needed to help you ambulate. Return to the ED with any increased swelling or pain of your thigh that is not controlled with Tylenol and Motrin at home. If you continue to have pain in the next 3 to 5 days you can follow-up with an orthopedic doctor or primary care doctor at the [facility] for further management. Your evaluation in the Emergency Department did not reveal any acute reason for admission. However, I want to emphasize that you may be early in the course of a disease process or illness even if it is not present. For this reason you should follow-up within 24 hours for reevaluation with either your primary care physician or if necessary back here in the Emergency Department. You should return to the Emergency Department immediately if your symptoms worsen or new symptoms develop. Print Language: Thai Disposition Disposition: Home, Self Care Discharge Date/Time: 12/18/24 21:28
== END 2024-12-18 21:28 | disposition home or self-care (01) ==
PROVIDERS: Emergency Provider Student in an Organized Health Care Education/Training Program; Visit Provider Student in an Organized Health Care Education/Training Program
DX: S76.912A Strain of unspecified muscles, fascia and tendons at thigh level, left thigh, initial encounter (principal); W10.9XXA Fall (on) (from) unspecified stairs and steps, initial encounter; I10 Essential (primary) hypertension; Z79.899 Other long term (current) drug therapy
CPT/HCPCS: 73552; 96372; 99283